=== PATIENT | male | born 1950 | race Asian ===

== ENCOUNTER 2017-03-08 22:00 | Inpatient (IN) | END 2017-03-29 17:29 | DRG 329 | DX: K92.2 Gastrointestinal hemorrhage, unspecified (principal); A41.9 Sepsis, unspecified organism; N17.9 Acute kidney failure, unspecified; N39.0 Urinary tract infection, site not specified; I12.9 Hypertensive chronic kidney disease with stage 1 through stage 4 chronic kidney disease, or unspecified chronic kidney disease; E11.9 Type 2 diabetes mellitus without complications; B96.20 Unspecified Escherichia coli [E. coli] as the cause of diseases classified elsewhere; D62 Acute posthemorrhagic anemia; E83.51 Hypocalcemia; E88.09 Other disorders of plasma-protein metabolism, not elsewhere classified; M10.9 Gout, unspecified; K42.9 Umbilical hernia without obstruction or gangrene; N18.9 Chronic kidney disease, unspecified; Z87.891 Personal history of nicotine dependence; N48.0 Leukoplakia of penis; N35.9 Urethral stricture, unspecified; N47.1 Phimosis; R50.9 Fever, unspecified; Z79.82 Long term (current) use of aspirin; N41.9 Inflammatory disease of prostate, unspecified ==